=== PATIENT | male | born 1970 | race African-American/Black ===

== ENCOUNTER 2017-10-02 09:36 | Emergency (ER) | payer BC, SELFPAY | END 2017-10-02 10:27 | disposition home or self-care (01) | PROVIDERS: Emergency Provider Nurse Practitioner; Visit Provider Nurse Practitioner | DX: J06.9 Acute upper respiratory infection, unspecified (principal) | CPT/HCPCS: 87804; 87880; 99201 ==

== ENCOUNTER 2017-11-21 13:54 | Emergency (ER) | payer BC, SELFPAY ==
[2017-11-21 14:05] VITALS: BP 112/80; PULSE 70; RESP 20; TEMP 36.8; O2SAT 100; BMI 31.8
--- NOTE | 2017-11-21 14:12 | HMH.EDUTC ---
[facility] [place] Clinical Impression: URI (upper respiratory infection) Qualifiers: URI type: unspecified URI Qualified Code(s): J06.9 - Acute upper respiratory infection, unspecified Disposition: Home, Self-Care Condition on Discharge: Good Instructions: Cough, DI for Cough -- Adult, Sore Throat Additional Instructions: * Monitor Temp. Tylenol and/or Ibuprofen as needed. ER if fever is no less than 101 despite alternating Tylenol and Ibuprofen * Encourage fluids, water, Gatorade, powerade, pedialyte if /toddler/or child * Warm salt water gargles for throat irritation *Warm fluids *Sore throat lozenges *Sleep elevated *humidifier or vaporizer Lots of rest Increase fluids, water, Gatorade, powerade *Flonase 2 sprays each nostril daily but may take 2-3 days to notice improvement with it *Bromfed may cause drowsiness. Know how it effect you or your child. Before driving, caring for small children or sending your child to school *Your throat swab was sent to lab for culture. Those results area typically sent to your primary care physician. Be sure to follow up in 2-3 days if no improvement so they can review those results and treat if necessary If you dont have primary care I recommend you get one, but in the mean time you will have to return to a walk in clinic Follow up IMMEDIATELY for new or worsening of symptoms OR no noticeable improvement over the next 48-72 hours. 911 immediately for any life threatening symptoms such as chest pain or difficulty breathing Prescriptions: Azithromycin [Z-Ramses 250mg Tab] 250 mg PO UD DOSE PK #6 tab Dextromethorphan Polistirex [Delsym] 10 ml PO Q12H PRN #250 wicho.er.12h PRN Reason: Cough predniSONE [Prednisone 20mg Tab] 20 mg PO DAILY #10 tab Referrals: Shaq Davenport MD [Primary Care Provider] - Time of Disposition: 14:18 Medical Decision Making - Medical Records Medical records reviewed: Yes: I reviewed the patient's medical records. Vital Signs: 11/21/17 14:05 Temperature 98.3 F Temperature Source Temporal Artery Scan Pulse Rate [Left Radial] 70 Respiratory Rate 20 Blood Pressure [Right Arm] 112/80 Blood Pressure Mean [Right Arm] 90 Blood Pressure Source [Right Arm] Automatic Cuff Blood Pressure Position [Right Arm] Sitting 02 Sat by Pulse Oximetry 100 Oxygen Delivery Method Room Air - Clive Inquiry Pt receiving controlled substance: No Clive was queried for this patient: No [facility] [place] - General Stated complaint: Congestion, cough Mode of Arrival: Ambulatory Source of Information: Patient Limitations: No Limitations HEENT Symptoms (Recalled from RN notes): Yes Resp Symptoms (Recalled from RN notes): Yes Skin Symptoms (Recalled from RN notes): No MS Symptoms (Recalled from RN notes): No Functional Status (Recalled from RN notes): na - History of Present Illness Provider Complaint: Patient states that he has been having cough and congestion along with nasal congestion and drainage State that she feels like it is draining down the back of his throat and causing his throat to be sore and irritated - Related Data Previous Rx's Medication Instructions Recorded Azithromycin [Z-Ramses 250mg Tab] 250 mg PO UD DOSE PK #6 tab 11/21/17 Dextromethorphan Polistirex 10 ml PO Q12H PRN #250 wicho.er.12h 11/21/17 [Delsym] predniSONE [Prednisone 20mg 20 mg PO DAILY #10 tab 11/21/17 Tab] Allergies Allergy/AdvReac Type Severity Reaction Status Date / Time NO KNOWN ALLERGIES Allergy Unknown Uncoded 10/02/17 09:57 - Worker's Comp Is this a Worker's Comp case?: No Is this an [facility] Worker's Comp?: No Is this a [facility] Worker's Comp?: No [facility] History I have reviewed the patient's past medical history: Yes Medical History: Denies:: Cancer, Diabetes Mellitus Type 1, Diabetes Mellitus Type 2, MRSA Laterality Cases: Right: Arthroscopy Knee Amputation: No Fractures: No - *Social History Educational Level: Attended High School Smoking Status: Never
--- NOTE | 2017-11-21 14:15 | ED_ITS ---
[facility] [facility] [place] Clinical Impression: URI (upper respiratory infection) Qualifiers: URI type: unspecified URI Qualified Code(s): J06.9 - Acute upper respiratory infection, unspecified Disposition: Home, Self-Care Condition on Discharge: Good Instructions: Cough, DI for Cough -- Adult, Sore Throat Additional Instructions: * Monitor Temp. Tylenol and/or Ibuprofen as needed. ER if fever is no less than 101 despite alternating Tylenol and Ibuprofen * Encourage fluids, water, Gatorade, powerade, pedialyte if /toddler/or child * Warm salt water gargles for throat irritation *Warm fluids *Sore throat lozenges *Sleep elevated *humidifier or vaporizer Lots of rest Increase fluids, water, Gatorade, powerade *Flonase 2 sprays each nostril daily but may take 2-3 days to notice improvement with it *Bromfed may cause drowsiness. Know how it effect you or your child. Before driving, caring for small children or sending your child to school *Your throat swab was sent to lab for culture. Those results area typically sent to your primary care physician. Be sure to follow up in 2-3 days if no improvement so they can review those results and treat if necessary If you don? t have primary care I recommend you get one, but in the mean time you will have to return to a walk in clinic Follow up IMMEDIATELY for new or worsening of symptoms OR no noticeable improvement over the next 48-72 hours. 911 immediately for any life threatening symptoms such as chest pain or difficulty breathing Prescriptions: Azithromycin [Z-Ramses 250mg Tab] 250 mg PO UD DOSE PK #6 tab Dextromethorphan Polistirex [Delsym] 10 ml PO Q12H PRN #250 wicho.er.12h PRN Reason: Cough predniSONE [Prednisone 20mg Tab] 20 mg PO DAILY #10 tab Referrals: Shaq Davenport MD [Primary Care Provider] - Time of Disposition: 14:18 Medical Decision Making - Medical Records Medical records reviewed: Yes: I reviewed the patient's medical records. Vital Signs: 11/21/17 14:05 Temperature 98.3 F Temperature Source Temporal Artery Scan Pulse Rate [Left Radial] 70 Respiratory Rate 20 Blood Pressure [Right Arm] 112/80 Blood Pressure Mean [Right Arm] 90 Blood Pressure Source [Right Arm] Automatic Cuff Blood Pressure Position [Right Arm] Sitting 02 Sat by Pulse Oximetry 100 Oxygen Delivery Method Room Air - Clive Inquiry Pt receiving controlled substance: No Clive was queried for this patient: No [facility] [facility] [place] - General Stated complaint: Congestion, cough Mode of Arrival: Ambulatory Source of Information: Patient Limitations: No Limitations HEENT Symptoms (Recalled from RN notes): Yes Resp Symptoms (Recalled from RN notes): Yes Skin Symptoms (Recalled from RN notes): No MS Symptoms (Recalled from RN notes): No Functional Status (Recalled from RN notes): na - History of Present Illness Provider Complaint: Patient states that he has been having cough and congestion along with nasal congestion and drainage State that she feels like it is draining down the back of his throat and causing his throat to be sore and irritated - Related Data Previous Rx's Medication Instructions Recorded Azithromycin [Z-Ramses 250mg Tab] 250 mg PO UD DOSE PK #6 tab 11/21/17 Dextromethorphan Polistirex 10 ml PO Q12H PRN #250 wicho.er.12h 11/21/17 [Delsym] predniSONE [Prednisone 20mg 20 mg PO DAILY #10 tab 11/21/17 Tab] Allergies Al
[2017-11-21 14:23] VITALS: BP 112/78; PULSE 78; RESP 18; TEMP 36.9
== END 2017-11-21 14:31 | disposition home or self-care (01) ==
PROVIDERS: Emergency Provider Nurse Practitioner; Family Provider Family Medicine; PCP Family Medicine
DX: J06.9 Acute upper respiratory infection, unspecified (principal)
CPT/HCPCS: 99202